=== PATIENT | female | born 1930 | race Caucasian/White ===

== ENCOUNTER 2017-04-16 14:45 | Inpatient (IN) ==
[2017-04-16] MEDS ORDERED: DILTIAZEM 50 MG/10 ML VIAL IV STA (15:08)
[2017-04-16 15:13] LABS: Basophils # 0.1 10*3/uL (0.0-0.2); Basophils % 0.4 % (0.0-0.8); Eosinophils # 0.1 10*3/uL (0.0-0.87); Eosinophils % 0.6 % (0.00-10.9); Hemoglobin 11.3 GM/DL (12.0-16.0); Immature Granulocytes % 0.5 %; Immature Granulocytes Absolute 0.07 #; Lymphocytes # 1.6 10*3/uL (1.4-4.0); Lymphocytes % 11.8 % (21.3-54.2); Mean Corpuscular HGB Conc 32.3 GM/DL (32-36); Mean Corpuscular Hemoglobin 29 PG (27-34); Mean Corpuscular Volume 88.6 FL (87-102); Mean Platelet Volume 10.7 FL (9.6-12.0); Monocytes # 0.8 10*3/uL (0.11-0.8); Monocytes % 5.8 % (1.7-12.7); Neutrophils % 80.9 % (38.7-73.9); Platelet Count 225 T/CUMM (130-400); Red Blood Count 3.95 MC/CUMM (3.8-5.5); White Blood Count 13.5 T/CUMM (4-12)
[2017-04-16 15:22] LABS: INR 1.1; PT Patient Result 11.3 SECS; Partial Thromboplastin Time 28.8 SECS (0-40)
[2017-04-16] MEDS ORDERED: DILTIAZEM INJ 100 MG in SODIUM CHLORIDE 0.9% 100 ML IV SCH (15:30)
[2017-04-16] MEDS ORDERED: DILTIAZEM 50 MG/10 ML VIAL IV ONE (15:34)
[2017-04-16] MEDS ORDERED: SODIUM CHLORIDE 0.9% 100 ML IV ONE (15:35)
[2017-04-16] MEDS ORDERED: DILTIAZEM 100 MG VIAL.ADD IV ONE (15:36)
--- NOTE | 2017-04-16 15:37 | XRay Report ---
Exam: XR chest 1V portable Date: 04/16/2017 3:08 PM Indication: Shortness of breath Comparison: None Technical: AP Findings: Mild cardiac prominence present. Bilateral Low volume effusion present. Left greater than right. ASVD present. External cardiac leads are present. Lateral marginal osteophytes are present. Calcification of tracheobronchial tree. Impression: 1. Cardiomegaly with bilateral low volume effusions present. Mild interstitial edema CHF suspected PROCEDURE INTERPRETED AT [facility] DEPARTMENT OF RADIOLOGY Final Report Signed by: Dr. Fernando Jonas
[2017-04-16 16:08] LABS: Albumin 3.2 G/DL (3.4-5.0); Bilirubin,Total 0.7 MG/DL (0.2-1.0); Calcium 8.6 MG/DL (8.5-10.1); Osmolality,Calculated 287.5 MOS/KG (273-304); Potassium 4.4 MMOL/L (3.5-5.1); Thyroid Stimulating Hormone 0.69 uIU/ml (0.358-3.74); Total Protein 7.1 G/DL (6.4-8.3)
--- NOTE | 2017-04-16 16:08 | Emergency Department Note ---
Addendum entered and electronically signed by Osmin Gross M.D. 04/16/17 18 :00: Patient acutely became hypoxic, agonal breathing, clinical suspicion is TX. She was intubated, etomidate and succinylcholine administered prior, successfully placed ET tube 7.5 on third attempt with Dr. Adrien Garcia assistance , he is the hospitalist who was there to evaluate the patient for admission for admission. Positive color change. We saw the tube passed through the cords. Secured at 24 cm and chest x-ray ordered for confirmation. Original Note: Morris Blanco Brittany, am scribing for, and in the presence of, Beck Hernandez MD 15:13. Mary Blanco James D, MD, personally performed the services described in this documentation, ascribed by Ashley Caceres in my presence, and it is both accurate and complete 607 . Arrival - Arrival ED Nursing Triage Note: Patient complains o shortness of breath that started 3 days ago. States that it was getting worse with exertion. Atrial fibrillation on the monitor per EMS. Bundle branch block on 12 lead per EMS. Mode of Arrival: Stretcher Limitations: No Limitations Source: Patient, RN Notes Reviewed - History of Present Illness Onset (ago): day(s) (3) Consistency: constant Date of Last Menstrual Period: Partial Hysterectomy <Beck Hernandez - Last Filed: 04/16/17 16:07> <Osmin Gross - Last Filed: 04/16/17 17:00> - Arrival Chief Complaint: Shortness of Breath - History of Present Illness HPI Narrative: Patient is a 86 y/o white female presenting to the ED by EMS for further evaluation of SOB which onset 3-4 days ago. Patient notes that SOB is worsened on exertional activities such as walking, and lying flat. Denies any diaphoresis , fever, productive cough, chest pain, arm pain, neck pain, nausea, vomiting, or headache. Hx of HF and Atrial Fibrillation, no TX. Link Trainer Operator is Dr. Sanchez and had a stress test performed. Patient states she took an 81 mg ASA. PMHx: HTN, NIDDM. (Ashley Caceres) Patient is a 86 y/o white female presenting to the ED by EMS for further evaluation of SOB which onset 3-4 days ago. Patient notes that SOB is worsened on exertional activities such as walking, and lying flat. Denies any diaphoresis , fever, productive cough, chest pain, arm pain, neck pain, nausea, vomiting, or headache. Hx of HF and Atrial Fibrillation, no TX. Link Trainer Operator is Dr. Sanchez and had a stress test performed. Patient states she took an 81 mg ASA. PMHx: HTN, NIDDM. (Beck Hernandez) Home Medications: Home Medications Medication Instructions Recorded Confirmed Type Aspirin EC Tab 81 mg PO QPM 04/16/17 04/16/17 History Carvedilol [Carvedilol] 3.125 mg PO BID 04/16/17 04/16/17 History Citalopram Hydrobromide 10 mg PO QPM 04/16/17 04/16/17 History [Citalopram HBr] Cyanocobalamin (Vitamin B-12) 1,000 mcg IJ Q30D 04/16/17 04/16/17 History [Cyanocobalamin Injection] Ergocalciferol (Vitamin D2) 50,000 unit PO Q7D 04/16/17 04/16/17 History [Vitamin D2] Levothyroxine Tab [Synthroid Tab] 112 mcg PO QAM 04/16/17 04/16/17 History Losartan Potassium [Losartan 50 mg PO QPM 04/16/17 04/16/17 History Potassium] Magnesium 250 mg PO QPM 04/16/17 04/16/17 History Metformin HCl 500 mg PO QPM 04/16/17 04/16/17 History Multivit-Min/Iron/Folic/Lutein 1 each PO QPM 04/16/17 04/16/17 History [Centrum Silver Women Tablet] Olopatadine HCl [Pazeo 0.7% Oph 1 drop BOTH EYES DAILY 04/16/17 04/16/17 History Soln] Omeprazole 20 mg PO QPM 04/16/17 04/16/17 History Pravastatin Sodium [Pravastatin 40 mg PO BEDTIME 04/16/17 04/16/17 History Sodium] Tizanidine HCl [Tizanidine HCl] 4 mg PO BEDTIME 04/16/17 04/16/17 History Tramadol HCl [Tramadol Tab] 50 mg PO Q6H PRN 04/16/17 04/16/17 History Review of System - Review of System 12 point system: reviewed and no additional remarkable complaints except as stated - Review of System Constitutional: Absent: diaphoresis Head/Ears/Nose/Throat: Absent: nasal drainage, sore throat Respiratory: Present: respiratory distress Cardiovascular: Absent: chest pain Gastrointestinal: Absent: abdominal pain, nausea Genitourinary female: Absent: dysuria Musculoskeletal: Absent: arm pain, neck pain Skin: Absent: rash <Beck Hernandez - Last Filed: 04/16/17 16:07> Medical,Surgical,& Family Hx - Medical History Cardio: History of: Hypertension Endocrine: History of: Diabetes Mellitus (NIDDM) - Social History Smoking Status: Never smoker Frequency of Alcohol Use: None Type of Drug Use: None <Beck Hernandez - Last Filed: 04/16/17 16:07> Exam <Beck Hernandez - Last Filed: 04/16/17 16:07> <Osmin Gross - Last Filed: 04/16/17 17:00> Physical Examination: GENERAL: This is a well-nourished, well-developed white female in no apparent distress. HEENT: Head is normocephalic and atraumatic. Pupils are equally round and reactive to light. Extraocular movement are intact. Oropharynx is benign with moist mucous membranes. NECK: Neck is soft and supple without tenderness. There are no masses. There is no lymphadenopathy. LUNGS: Lungs are clear to auscultation bilaterally. Chest rises symmetrically. There is no chest wall tenderness. CV: Heart is slightly tachycardic and has an irregularly irregular rhythm without murmurs, rubs, or gallops. ABDOMEN: Abdomen is soft, non-tender to palpation. There are no abnormal masses palpated. There is no organomegaly. Bowel sounds are present and active. SKIN: Skin is warm and dry. No rash. EXTREMITIES: Patient has full range of motion without tenderness. There is no pedal edema. NEUROLOGIC: Awake, alert, and oriented x4. Cranial nerves II through XII are grossly intact. There are no motorsensory deficits. PSYCHIATRIC: Normal affect. Normal mood. (Ashley Caceres) GENERAL: This is a well-nourished, well-developed white female in no apparent distress. HEENT: Head is normocephalic and atraumatic. Pupils are equally round and reactive to light. Extraocular movement are intact. Oropharynx is benign with moist mucous membranes. NECK: Neck is soft and supple without tenderness. There are no masses. There is no lymphadenopathy. LUNGS: Lungs are clear to auscultation bilaterally. Chest rises symmetrically. There is no chest wall tenderness. CV: Heart is slightly tachycardic and has an irregularly irregular rhythm without murmurs, rubs, or gallops. ABDOMEN: Abdomen is soft, non-tender to palpation. There are no abnormal masses palpated. There is no organomegaly. Bowel sounds are present and active. SKIN: Skin is warm and dry. No rash. EXTREMITIES: Patient has full range of motion without tenderness. There is no pedal edema. NEUROLOGIC: Awake, alert, and oriented x4. Cranial nerves II through XII are grossly intact. There are no motorsensory deficits. PSYCHIATRIC: Normal affect. Normal mood. (Beck Hernandez) Vital Signs: Vital Signs Temperature 97.4 F L 04/16/17 14:40 Pulse Rate 117 H 04/16/17 14:40 Respiratory Rate 17 04/16/17 14:40 Blood Pressure 98/49 04/16/17 14:40 O2 Sat by Pulse Oximetry 94 L 04/16/17 15:45 Course <Beck Hernandez - Last Filed: 04/16/17 16:07> <Osmin Gross - Last Filed: 04/16/17 17:00> Course Narrative: Medical decision making: Discussed patient's situation with Dr. Mccarthy cardiology construction person who recommended admission to hospitalist. Contacted hospitalist service for admission and continued evaluation of her chest pain shortness of breath possible newly diagnosed A. fib and abnormal labs. (Osmin Gross) Results - Labs CBC & BMP: 04/16/17 15:04 Lab Results: I have reviewed the patients labs - Diagnostic Findings Procedure: Chest x-ray: report reviewed by me (Cardiomegaly with bilateral low volume effusions present. Mild interstitial edema CHF suspected.) <Beck Hernandez - Last Filed: 04/16/17 16:07> - Labs CBC & BMP: 04/16/17 15:04 04/16/17 15:04 - EKG EKG results: interpreted by [facility] EKG shows: tachycardia, atrial fibrillation (RVR 106 HR) <Osmin Gross - Last Filed: 04/16/17 17:00> - Labs Labs: Laboratory Tests 04/16/17 15:04 WBC 13.5 H RBC 3.95 Hgb 11.3 L Hct 35.0 L Plt Count 225 Neut % (Auto) 80.9 H Lymph % (Auto) 11.8 L Neut # (Auto) 11.0 H Laboratory Tests 04/16/17 15:04 INR 1.1 PT Patient/Control Mix 11.3 Circ Anticoag PTT 28.8 Laboratory Tests 04/16/17 15:04 Free T4 1.88 H (Ashley Caceres) Laboratory Tests 04/16/17 15:04 WBC 13.5 H RBC 3.95 Hgb 11.3 L Hct 35.0 L Plt Count 225 Neut % (Auto) 80.9 H Lymph % (Auto) 11.8 L Neut # (Auto) 11.0 H Laboratory Tests 04/16/17 15:04 INR 1.1 PT Patient/Control Mix 11.3 Circ Anticoag PTT 28.8 Laboratory Tests 04/16/17 15:04 Free T4 1.88 H (Beck Hernandez) Disposition Case discussed with: patient <Beck Hernandez - Last Filed: 04/16/17 16:07> Case discussed with: patient, patient's family Time of Disposition: 17:00 <Osmin Gross - Last Filed: 04/16/17 17:00> Clinical Impression: Atrial fibrillation with RVR, Dyspnea Disposition: Still a Patient Condition: Stable
[2017-04-16 16:16] LABS: Troponin I Only 1.2 NG/ML (0.00-0.045)
[2017-04-16] MEDS ORDERED: ONDANSETRON 4 MG/2 ML VIAL ONE (17:17)
[2017-04-16] MEDS ORDERED: ONDANSETRON 4 MG/2 ML VIAL IV STA (17:21)
[2017-04-16] MEDS ORDERED: PROPOFOL 1,000 MG/100 ML BOTTLE IV ONE (17:41)
--- NOTE | 2017-04-16 17:55 | Hospitalist History & Physical ---
Assessment and Plan (1) Respiratory failure requiring intubation Status: Acute Assessment and plan: The patient is now admitted to the critical care area. I coordinate care with recreation facility attendant. I had family conference with the patient's daughter in the emergency room waiting room. I intubated the patient and initiate mechanical ventilation. I interpreted the EKG to reveal no evidence of acute ST elevation myocardial infarction. I ordered further EKG and ABG. I coordinated care with respiratory therapist. Current Visit: Yes (2) Chest pain due to myocardial ischemia Status: Acute Current Visit: Yes (3) Atrial fibrillation with RVR Status: Acute Current Visit: Yes (4) Dyspnea Status: Acute Current Visit: Yes History of Present Illness Chief complaint: Chest pressure and nausea History of present illness: Ms. Ramos is a 86 year old female with history of essential hypertension, hypothyroidism, and depression. The patient comes to the hospital with nausea vomiting and chest pressure. The chest pressure has been present for 6 hours. The pressure is constant, 2/10, worsening with exertion. The chest pressure is associated with nausea and vomiting. The patient denies fever, chills, dysuria. During the interview the patient's vomiting worsened and then she had hypoxia consistent with aspiration. The patient required intubation and I initiated mechanical ventilation. The patient is now being transported to intensive care unit. I coordinated care with Dr. Knight and reviewed the EKG with him. There is no acute ST elevation ID at this time. Troponin is elevated we will trend troponin and a repeat EKG. Critical care time 68 minutes. Home Medications Medication Instructions Recorded Confirmed Type Aspirin EC Tab 81 mg PO QPM 04/16/17 04/16/17 History Carvedilol [Carvedilol] 3.125 mg PO BID 04/16/17 04/16/17 History Citalopram Hydrobromide 10 mg PO QPM 04/16/17 04/16/17 History [Citalopram HBr] Cyanocobalamin (Vitamin B-12) 1,000 mcg IJ Q30D 04/16/17 04/16/17 History [Cyanocobalamin Injection] Ergocalciferol (Vitamin D2) 50,000 unit PO Q7D 04/16/17 04/16/17 History [Vitamin D2] Levothyroxine Tab [Synthroid Tab] 112 mcg PO QAM 04/16/17 04/16/17 History Losartan Potassium [Losartan 50 mg PO QPM 04/16/17 04/16/17 History Potassium] Magnesium 250 mg PO QPM 04/16/17 04/16/17 History Metformin HCl 500 mg PO QPM 04/16/17 04/16/17 History Multivit-Min/Iron/Folic/Lutein 1 each PO QPM 04/16/17 04/16/17 History [Centrum Silver Women Tablet] Olopatadine HCl [Pazeo 0.7% Oph 1 drop BOTH EYES DAILY 04/16/17 04/16/17 History Soln] Omeprazole 20 mg PO QPM 04/16/17 04/16/17 History Pravastatin Sodium [Pravastatin 40 mg PO BEDTIME 04/16/17 04/16/17 History Sodium] Tizanidine HCl [Tizanidine HCl] 4 mg PO BEDTIME 04/16/17 04/16/17 History Tramadol HCl [Tramadol Tab] 50 mg PO Q6H PRN 04/16/17 04/16/17 History Medical,Surgical,& Family Hx - Medical History Cardio: History of: Hypertension Endocrine: History of: Diabetes Mellitus (NIDDM) - Family History Family History: Reports;: Family Hypertension - Social History Smoking Status: Never smoker Frequency of Alcohol Use: None Type of Drug Use: None Marital Status: Lives With:: Children Functional capacity: independent ambulation 12 point system: reviewed and no additional remarkable complaints except as stated Exam - Constitutional Vitals: Period Temp Pulse Resp BP Sys/[place] Pulse Ox Last 24 Hr 97.4 F 117 17 98/49 94-95 Exam: Constitutional System: Moderate distress on account of vomiting. No tremulousness. Head: Normocephalic, atraumatic. Ears, Nose and Throat System: No evidence of Otitis or Mastoiditis. No epistaxis or discharge Eyes System: Pupils equal, round, and reactive. Extraocular muscles intact. Neck: Supple, without adenopathy, 1+ jugular venous distention. No thyromegaly , neck mass, or prior surgery apparent. Respiratory System: Chest rhonchi in bases to auscultation. Cardiovascular System: Heart with irregular rate and rhythm. No murmur. GI System: Abdomen soft, nontender. Normo active bowel sounds present. Musculoskeletal System: limbs with no pedal edema. Full distal pulses. Neurological System: No discernable sensory deficit. No aphasia Psychiatric System: Conversation is rational prior to intubation Results - Labs CBC & BMP: 04/16/17 15:04 04/16/17 15:04 Lab Results: I have reviewed the past 24 hour labs - EKG EKG shows: atrial fibrillation - Diagnostic Findings Procedure: Chest x-ray: image reviewed by me (Postintubation chest x-ray reveals ET tube in appropriate placement)
--- NOTE | 2017-04-16 18:47 | XRay Report ---
XR chest 1V Indication: Intubation Comparison: 16 April 2017 Findings: The heart and mediastinum are stable in size and configuration. Endotracheal tube is present with tip just beyond the clavicles. The pulmonary vascularity is slightly increased with bilateral increased interstitial lung density. No other lung infiltrates, effusions, pneumothorax or other abnormality is demonstrated. Impression: Findings suggest mild cardiac decompensation. Endotracheal tube appears within normal limits. PROCEDURE INTERPRETED AT [facility] DEPARTMENT OF RADIOLOGY Final Report Signed by: Dr. Pablo Mcduffie
[2017-04-16] MEDS ORDERED: DOPamine 800 MG/250 ML PREMIX IV ONE (18:48)
[2017-04-16] MEDS ORDERED: ONDANSETRON 4 MG/2 ML VIAL IV PRN (18:49)
[2017-04-16] MEDS: DOPamine 800 MG/250 ML PREMIX IV SCH (18:51)
--- NOTE | 2017-04-16 18:52 | EKG Report ---
Stationary ECG Study [facility] ER Test Date: 04/16/2017 2:57:12 PM Pat Name: NABEEL BONILLA Department: Room: 117 Gender: F [employer]: : 1930 Requested by: Adrien Garcia Order Number: [id number] Reading MD: ROLANDO ABRAMS Intervals [place] Rate: 106 P: 999 NC: 0 QRS: -11 QRSD: 136 T: 130 QT: 371 QTc: 433 Interpretive Statements ATRIAL FIBRILLATION WITH RAPID VENTRICULAR RESPONSE INTRAVENTRICULAR CONDUCTION DELAY POSSIBLE ANTERIOR MYOCARDIAL INFARCTION, PROBABLY OLD Electronically Signed On 04-17-17 06:17:28 CDT by ROLANDO ABRAMS [email or web address]
[2017-04-16 18:55] LABS: Apearance,Urine CLOUDY (Clear); Bacteria,Urine Many /HPF (Few); Bilirubin,Urine Negative (Negative); Blood, Urine Large mg/dL (Negative); Glucose,Urine (UA) Negative (Negative); Hyaline Casts,Urine 110 /LPF (0-3); Ketones,Urine 5 mg/dL (Negative); Mucus,Urine Few /LPF (Occasional); Nitrite,Urine Negative (Negative); Protein,Urine 100 MG/DL; RBC,Urine 371 /HPF (0-4); Urine Color Amber (Yellow); Urine Specific Gravity 1.016 (1.001-1.035); Urine Urobilinogen < 2.0 EU/DL (0.2-1.0); WBC,Urine 102 /HPF (0-6)
[2017-04-16] MEDS ORDERED: SUCCINYLCHOLINE 200 MG/10 ML VIAL ONE (19:00)
[2017-04-16] MEDS ORDERED: ETOMIDATE 20 MG/10 ML VIAL IV ONE (19:00)
[2017-04-16] MEDS ORDERED: ENOXAPARIN 30 MG/0.3 ML SYRINGE SUBCUT SCH (19:00)
[2017-04-16] MEDS ORDERED: cefTRIAXone 1,000 MG in SODIUM CHLORIDE 0.9% 100 ML IV SCH (19:00)
[2017-04-16 19:01] LABS: Barbiturates Screen,Urine Negative (Negative); Benzodiazepines Screen,Urine Negative (Negative); Cannabinoid Screen,Urine Negative (Negative); Opiate Screen,Urine Negative (Negative); Phencyclidine Screen,Urine Negative (Negative)
[2017-04-16] MEDS ORDERED: SODIUM CHLORIDE 0.9% 1,000 ML IV ONE (19:16)
--- NOTE | 2017-04-16 19:21 | Cardiology Consult Note ---
Assessment and Plan (1) Non-ST elevation myocardial infarction (NSTEMI) Status: Acute Current Visit: Yes (2) Atrial fibrillation with RVR Status: Acute Current Visit: Yes (3) Chest pain due to myocardial ischemia Status: Acute Current Visit: Yes History of Present Illness - Data of Consult Patient: new to practice - Consult Narrative Reason for consult: Elevated troponin abnormal EKG episode bradycardia hypotension respiratory History of present illness: Ms. Ramos is a 86 year old female who presented to the emergency room with complaints of tachycardia atrial fibrillation nausea and dyspnea. She apparently was complaining of chest pressure and her troponin was noted to be 1.3. She had associated nausea and vomiting. She was admitted to the intensive care unit for close observation and Dr. Adrien Garcia had seen her. There was not felt to be any evidence of an acute ST elevation myocardial infarction. She had a fairly stable left bundle branch block. She is now on an idioventricular rhythm with rates in the 45 range with AV dissociation noted. She is hypotensive requiring dopamine for blood pressure support. She became hypoxemic and required intubation and will be mechanically ventilated. Certainly we could be dealing with an acute coronary event but I am not certain that that is the etiology of this. There is no indication based on her EKG that this is an acute myocardial infarction. CC: Adrien Garcia MD - Home Medications and Allergies Home Medications: Home Medications Medication Instructions Recorded Confirmed Type Aspirin EC Tab 81 mg PO QPM 04/16/17 04/16/17 History Carvedilol [Carvedilol] 3.125 mg PO BID 04/16/17 04/16/17 History Citalopram Hydrobromide 10 mg PO QPM 04/16/17 04/16/17 History [Citalopram HBr] Cyanocobalamin (Vitamin B-12) 1,000 mcg IJ Q30D 04/16/17 04/16/17 History [Cyanocobalamin Injection] Ergocalciferol (Vitamin D2) 50,000 unit PO Q7D 04/16/17 04/16/17 History [Vitamin D2] Levothyroxine Tab [Synthroid Tab] 112 mcg PO QAM 04/16/17 04/16/17 History Losartan Potassium [Losartan 50 mg PO QPM 04/16/17 04/16/17 History Potassium] Magnesium 250 mg PO QPM 04/16/17 04/16/17 History Metformin HCl 500 mg PO QPM 04/16/17 04/16/17 History Multivit-Min/Iron/Folic/Lutein 1 each PO QPM 04/16/17 04/16/17 History [Centrum Silver Women Tablet] Olopatadine HCl [Pazeo 0.7% Oph 1 drop BOTH EYES DAILY 04/16/17 04/16/17 History Soln] Omeprazole 20 mg PO QPM 04/16/17 04/16/17 History Pravastatin Sodium [Pravastatin 40 mg PO BEDTIME 04/16/17 04/16/17 History Sodium] Tizanidine HCl [Tizanidine HCl] 4 mg PO BEDTIME 04/16/17 04/16/17 History Tramadol HCl [Tramadol Tab] 50 mg PO Q6H PRN 04/16/17 04/16/17 History Allergies/Adverse Reactions: Allergies Allergy/AdvReac Type Severity Reaction Status Date / Time codeine Allergy Unknown/Unable Verified 04/16/17 18:25 to obtain Iodinated Contrast Media - Allergy Unknown/Unable Verified 04/16/17 18:25 Oral and to obtain Medical,Surgical,& Family Hx - Medical History Cardio: History of: Hypertension Endocrine: History of: Diabetes Mellitus (NIDDM) - Family History Family History: Reports;: Family Hypertension - Social History Smoking Status: Never smoker Frequency of Alcohol Use: None Type of Drug Use: None Physical Examination Vital Signs Temp Pulse Resp BP Pulse Ox 97.4 F L 117 H 17 98/49 95 04/16/17 14:40 04/16/17 14:40 04/16/17 14:40 04/16/17 14:40 04/16/17 14:40 Exam: Physical examination: General: The patient is intubated on the ventilator. HEENT: Normocephalic, sclera are clear there are no lid xanthelasmas noted. Oral mucosa is free of cyanosis or pallor. Endotracheal tube is in stable position. Neck: The neck is supple without JVD. Carotid upstrokes are normal by visualization no bruit is audible. There is no palpable thyroid. Trachea is midline. Chest: Lungs: The patient is comfortable at rest without intercostal retractions or abdominal breathing. There are no adventitial sounds rales rubs rhonchi or wheezes noted. Cardiovascular: The PMI is nondisplaced. There is a bradycardic rhythm. There is a systolic murmur noted grade 2 at the apex. Abdomen: Abdomen is soft and nontender with normal active bowel sounds. There is no palpable mass or organomegaly noted. There is no midline bruit. Extremities exam: There is no cyanosis clubbing or edema. Skin: Skin is warm and dry without ecchymosis or urticaria or skin rash. There are no palpable nodules. Musculoskeletal: There is no kyphosis or scoliosis noted. Result/EKG - Labs CBC & BMP: 04/16/17 15:04 04/16/17 15:04 Labs: Laboratory Results - last 24 hr 04/16/17 04/16/17 04/16/17 15:04 15:04 15:04 WBC 13.5 H RBC 3.95 Hgb 11.3 L Hct 35.0 L MCV 88.6 MCH 29 MCHC 32.3 RDW 14.0 Plt Count 225 MPV 10.7 Neut % (Auto) 80.9 H Lymph % (Auto) 11.8 L Hale % (Auto) 5.8 Eos % (Auto) 0.6 Baso % (Auto) 0.4 Neut # (Auto) 11.0 H Lymph # (Auto) 1.6 Hale # (Auto) 0.8 Eos # (Auto) 0.1 Baso # (Auto) 0.1 Immature Gran % 0.5 Nucleated RBC % 0.0 Immature Gran # 0.07 Nucleated RBCs # 0.00 INR 1.1 PT Patient/Control Mix 11.3 Circ Anticoag PTT 28.8 Sodium Potassium Chloride Carbon Dioxide Anion Gap BUN Creatinine GFR Calculation BUN/Creatinine Ratio Glucose Calculated Osmolality Calcium Total Bilirubin AST ALT Alkaline Phosphatase Troponin I B-Natriuretic Peptide Total Protein Albumin Globulin Albumin/Globulin Ratio Free T4 1.88 H TSH 3rd Generation Urine Color Urine Appearance Urine pH Ur Specific [place] Urine Protein Urine Glucose (UA) Urine Ketones Urine Blood Urine Nitrate Urine Bilirubin Urine Urobilinogen Urine Leukocytes Urine RBC Urine WBC Urine Bacteria Hyaline Casts Urine Mucus Ur Culture Indicated? Urine Opiates Screen Ur Barbiturates Screen Ur Phencyclidine Scrn U Amphetamine/Methamph U Benzodiazepines Scrn U Cocaine Metab Screen U Cannabinoids Screen 04/16/17 04/16/17 04/16/17 15:04 15:04 17:50 WBC RBC Hgb Hct MCV MCH MCHC RDW Plt Count MPV Neut % (Auto) Lymph % (Auto) Hale % (Auto) Eos % (Auto) Baso % (Auto) Neut # (Auto) Lymph # (Auto) Hale # (Auto) Eos # (Auto) Baso # (Auto) Immature Gran % Nucleated RBC % Immature Gran # Nucleated RBCs # INR PT Patient/Control Mix Circ Anticoag PTT Sodium 139 Potassium 4.4 Chloride 102 Carbon Dioxide 23 Anion Gap 18.4 H BUN 27 H Creatinine 1.90 H GFR Calculation 22 BUN/Creatinine Ratio 14.00 Glucose 202 H Calculated Osmolality 287.5 Calcium 8.6 Total Bilirubin 0.70 AST 22 ALT 15 Alkaline Phosphatase 106 Troponin I 1.200 H B-Natriuretic Peptide 293 H Total Protein 7.1 Albumin 3.2 L Globulin 3.9 H Albumin/Globulin Ratio 0.8 L Free T4 TSH 3rd Generation 0.690 Urine Color Urine Appearance Urine pH Ur Specific [place] Urine Protein Urine Glucose (UA) Urine Ketones Urine Blood Urine Nitrate Urine Bilirubin Urine Urobilinogen Urine Leukocytes Urine RBC Urine WBC Urine Bacteria Hyaline Casts Urine Mucus Ur Culture Indicated? Urine Opiates Screen Negative Ur Barbiturates Screen Negative Ur Phencyclidine Scrn Negative U Amphetamine/Methamph Negative U Benzodiazepines Scrn Negative U Cocaine Metab Screen Negative U Cannabinoids Screen Negative 04/16/17 17:50 WBC RBC Hgb Hct MCV MCH MCHC RDW Plt Count MPV Neut % (Auto) Lymph % (Auto) Hale % (Auto) Eos % (Auto) Baso % (Auto) Neut # (Auto) Lymph # (Auto) Hale # (Auto) Eos # (Auto) Baso # (Auto) Immature Gran % Nucleated RBC % Immature Gran # Nucleated RBCs # INR PT Patient/Control Mix Circ Anticoag PTT Sodium Potassium Chloride Carbon Dioxide Anion Gap BUN Creatinine GFR Calculation BUN/Creatinine Ratio Glucose Calculated Osmolality Calcium Total Bilirubin AST ALT Alkaline Phosphatase Troponin I B-Natriuretic Peptide Total Protein Albumin Globulin Albumin/Globulin Ratio Free T4 TSH 3rd Generation Urine Color Sarah Urine Appearance Cloudy Urine pH 5.0 Ur Specific [place] 1.016 Urine Protein 100 Urine Glucose (UA) Negative Urine Ketones 5 Urine Blood Large Urine Nitrate Negative Urine Bilirubin Negative Urine Urobilinogen < 2.0 H Urine Leukocytes Moderate H Urine RBC 371 Urine WBC 102 Urine Bacteria Many Hyaline Casts 110 Urine Mucus Few Ur Culture Indicated? Results to follow Urine Opiates Screen Ur Barbiturates Screen Ur Phencyclidine Scrn U Amphetamine/Methamph U Benzodiazepines Scrn U Cocaine Metab Screen U Cannabinoids Screen
[2017-04-16 19:23] LABS: ABG Base Excess -16.6 MMOL/L (-2.5-2.5); ABG HCO3 12.1 MMOL/L (20-26); ABG Oxygen Saturation 97.7 % (95-100); ABG PCO2 38.5 MM HG (35-48); ABG TCO2 11.7 MMOL/L (23-27)
[2017-04-16 19:26] LABS: ABG PH 7.117 (7.35-7.45)
[2017-04-16] MEDS ORDERED: ENOXAPARIN 60 MG/0.6 ML SYRINGE SUBCUT ONE (19:26)
--- NOTE | 2017-04-16 19:34 | XRay Report ---
XR chest 1V portable Indication: Central line placement Comparison: 16 April 2017 at 5:20 PM Findings: The heart and mediastinum are stable in size and configuration. Right subclavian catheter is in place with tip overlying right atrium. Remaining lines and tubes are unchanged in position. The pulmonary vascularity is prominent similar to previous exam. No lung infiltrates, effusions, pneumothorax or other abnormality is demonstrated. Impression: Right subclavian catheter appear so within normal limits. No other significant changes. PROCEDURE INTERPRETED AT [facility] DEPARTMENT OF RADIOLOGY Final Report Signed by: Dr. Pablo Mcduffie
[2017-04-16 19:36] LABS: ABG HCO3 11.7 MMOL/L (20-26); ABG Oxygen Saturation 94.7 % (95-100); ABG PCO2 37.3 MM HG (35-48); ABG TCO2 11.3 MMOL/L (23-27)
[2017-04-16 19:37] LABS: ABG PH 7.112 (7.35-7.45)
[2017-04-16] MEDS: ALBUTEROL 2.5 MG/3 ML NEB RESP TX PRN ×2 (19:38→19:39)
[2017-04-16] MEDS ORDERED: ISOPROTERENOL 1 MG/5 ML VIAL IV ONE (19:38)
[2017-04-16] MEDS: ALBUTEROL/IPRATROPIUM 3 ML NEB RESP TX SCH (19:38)
[2017-04-16] MEDS: MORPHINE 2 MG/1 ML SYRINGE IV PRN (19:41)
[2017-04-16] MEDS ORDERED: SODIUM BICARBONATE 50 MEQ/50 ML SYRINGE IV ONE ×2 (19:59→20:10)
[2017-04-16] MEDS ORDERED: ISOPROTERENOL IV SCH (20:00)
[2017-04-16] MEDS ORDERED: LEVOFLOXACIN INJ 500 MG in PREMIX 1 EACH IV SCH (20:00)
[2017-04-16] MEDS ORDERED: SODIUM CHLORIDE 0.9% IV SCH (20:00)
[2017-04-16] MEDS ORDERED: FAMOTIDINE 20 MG/2 ML VIAL IV SCH (20:00)
[2017-04-16] MEDS ORDERED: SODIUM CHLORIDE 0.9% 500 ML IV ONE (20:10)
[2017-04-16] MEDS: NOREPINEPHRINE 8 MG in SODIUM CHLORIDE 0.9% 242 ML IV SCH (20:17)
[2017-04-16] MEDS: SODIUM CHLORIDE 0.9% 1,000 ML IV SCH (20:20)
[2017-04-16] MEDS: PROPOFOL 1,000 MG/100 ML BOTTLE IV SCH (22:22)
[2017-04-17] MEDS: DOPamine 800 MG/250 ML PREMIX IV SCH ×2 (00:23→07:40)
[2017-04-17] MEDS: ALBUTEROL/IPRATROPIUM 3 ML NEB RESP TX SCH ×3 (00:50→13:20)
[2017-04-17] MEDS: NOREPINEPHRINE 8 MG in SODIUM CHLORIDE 0.9% 242 ML IV SCH ×2 (01:18→06:12)
[2017-04-17] MEDS: PROPOFOL 1,000 MG/100 ML BOTTLE IV SCH (01:24)
[2017-04-17] MEDS: SODIUM CHLORIDE 0.9% 1,000 ML IV SCH ×2 (03:05→07:19)
[2017-04-17 03:26] LABS: Basophils % 0.1 % (0.0-0.8); Hematocrit 36.1 VOL% (35.7-47.0); Hemoglobin 11.2 GM/DL (12.0-16.0); Immature Granulocytes % 1.5 %; Lymphocytes # 1.8 10*3/uL (1.4-4.0); Lymphocytes % 8.8 % (21.3-54.2); Mean Corpuscular Hemoglobin 29 PG (27-34); Mean Corpuscular Volume 93.5 FL (87-102); Mean Platelet Volume 10.7 FL (9.6-12.0); Monocytes % 4.8 % (1.7-12.7); Neutrophils # 17.1 10*3/uL (1.4-7.4); Neutrophils % 84.8 % (38.7-73.9); Platelet Count 205 T/CUMM (130-400); Red Blood Count 3.86 MC/CUMM (3.8-5.5); Red Cell Distribution Width 14.3 % (9.3-17.3); White Blood Count 20.2 T/CUMM (4-12)
[2017-04-17] MEDS ORDERED: HEPARIN/NACL 0.9% 2 UNITS/ML 500 ML IV ONE ×2 (03:27→04:30)
[2017-04-17] MEDS ORDERED: LIDOCAINE 1%/EPI INJ 20 ML VIAL ONE (03:57)
[2017-04-17 04:00] LABS: Calcium 7.4 MG/DL (8.5-10.1); Magnesium 1.7 MG/DL (1.8-2.4); Osmolality,Calculated 303.6 MOS/KG (273-304); Potassium 4.1 MMOL/L (3.5-5.1)
[2017-04-17 04:12] LABS: Band Neutrophils 9 % (0-10); Lymphocytes 9 % (20-55); Metamyelocytes 5 %; Myelocytes 1 %; Segmented Neutrophils 73 % (50-85)
[2017-04-17 04:13] LABS: Risk Ratio 3.13; VLDL CHOLESTEROL 39.2 MG/DL
[2017-04-17 04:15] LABS: Burr Cells 1+; Platelet Estimate Normal; Polychromasia Few
[2017-04-17 04:16] LABS: Total Cells Counted 100
[2017-04-17] MEDS ORDERED: MAGNESIUM SULF RIDER 4 GM in PREMIX 1 EACH IV PRN (04:26)
[2017-04-17] MEDS ORDERED: MAGNESIUM SULF RIDER 2 GM in PREMIX 1 EACH IV PRN (04:26)
[2017-04-17] MEDS ORDERED: SODIUM CHLORIDE 0.45% 1,000 ML IV SCH (04:30)
[2017-04-17 04:31] LABS: CKMB % 4.3 %
--- NOTE | 2017-04-17 05:09 | Operative Note ---
Date of procedure: 04/17/17 Pre-op diagnosis: Right pneumothorax Post-op diagnosis: same Procedure: Procedure performed: Placement of right chest thoracostomy tube Procedure in detail: Upon my arrival the right chest was prepped and draped in sterile fashion. After procedural pause local anesthetic infiltrated in the skin and subcutaneous tissue lateral to the right nipple in the anterior axillary line. An incision was made and dissection carried over approximately the fifth rib. The thoracic cavity was bluntly entered with hemostats and there was a large negro of air present. Finger sweep revealed no adhesions. A 24 Martiniquais chest tube was then guided alongside my finger anteriorly toward the apex. It was secured in place with 2-0 silk suture. It was hooked to Pleur- evac with wall suction 20 mmHg with a small air leak identified. Sterile occlusive dressings were applied. Though in critical condition, patient appeared to tolerate the procedure well. Post procedure x-ray revealed the lung had reexpanded. Anesthesia: local Surgeon / Physician: Kee Patel Estimated blood loss: other (Less than 5 cc) Specimens: none sent Condition: critical Disposition: no change Results - Labs CBC & BMP: 04/17/17 03:15 04/17/17 03:15 Discharge Plan - Discharge Medications No Action Multivit-Min/Iron/Folic/Lutein [Centrum Silver Women Tablet] 1 each PO QPM Olopatadine HCl [Pazeo 0.7% Oph Soln] 1 drop BOTH EYES DAILY Losartan Potassium [Losartan Potassium] 50 mg PO QPM Levothyroxine Tab [Synthroid Tab] 112 mcg PO QAM Metformin HCl 500 mg PO QPM Magnesium 250 mg PO QPM Tramadol HCl [Tramadol Tab] 50 mg PO Q6H PRN PRN Reason: Pain Tizanidine HCl [Tizanidine HCl] 4 mg PO BEDTIME Pravastatin Sodium [Pravastatin Sodium] 40 mg PO BEDTIME Ergocalciferol (Vitamin D2) [Vitamin D2] 50,000 unit PO Q7D Cyanocobalamin (Vitamin B-12) [Cyanocobalamin Injection] 1,000 mcg IJ Q30D Carvedilol [Carvedilol] 3.125 mg PO BID Omeprazole 20 mg PO QPM Aspirin EC Tab 81 mg PO QPM Citalopram Hydrobromide [Citalopram HBr] 10 mg PO QPM - Follow Up or Referral - Forms/Instructions
--- NOTE | 2017-04-17 05:14 | General Surgery Consult Note ---
Assessment and Plan (1) Pneumothorax, acute Status: Acute Assessment and plan: Impression: Right pneumothorax. Plan: A right chest tube was placed at bedside. See the operative report. We will continue with 20 mmHg suction. I will follow. Patient is in critical condition. Current Visit: Yes History of Present Illness Chief complaint: Consult for chest tube placement History of present illness: Ms. Ramos is a 86 year old female who apparently sustained a significant myocardial infarction. She had undergone central line placement as well as chest compressions. Maxed out on pressors. She was found to have a large right pneumothorax this morning on chest x-ray. Home Medications Medication Instructions Recorded Confirmed Type Aspirin EC Tab 81 mg PO QPM 04/16/17 04/16/17 History Carvedilol [Carvedilol] 3.125 mg PO BID 04/16/17 04/16/17 History Citalopram Hydrobromide 10 mg PO QPM 04/16/17 04/16/17 History [Citalopram HBr] Cyanocobalamin (Vitamin B-12) 1,000 mcg IJ Q30D 04/16/17 04/16/17 History [Cyanocobalamin Injection] Ergocalciferol (Vitamin D2) 50,000 unit PO Q7D 04/16/17 04/16/17 History [Vitamin D2] Levothyroxine Tab [Synthroid Tab] 112 mcg PO QAM 04/16/17 04/16/17 History Losartan Potassium [Losartan 50 mg PO QPM 04/16/17 04/16/17 History Potassium] Magnesium 250 mg PO QPM 04/16/17 04/16/17 History Metformin HCl 500 mg PO QPM 04/16/17 04/16/17 History Multivit-Min/Iron/Folic/Lutein 1 each PO QPM 04/16/17 04/16/17 History [Centrum Silver Women Tablet] Olopatadine HCl [Pazeo 0.7% Oph 1 drop BOTH EYES DAILY 04/16/17 04/16/17 History Soln] Omeprazole 20 mg PO QPM 04/16/17 04/16/17 History Pravastatin Sodium [Pravastatin 40 mg PO BEDTIME 04/16/17 04/16/17 History Sodium] Tizanidine HCl [Tizanidine HCl] 4 mg PO BEDTIME 04/16/17 04/16/17 History Tramadol HCl [Tramadol Tab] 50 mg PO Q6H PRN 04/16/17 04/16/17 History Allergies Allergy/AdvReac Type Severity Reaction Status Date / Time codeine Allergy Unknown/Unable Verified 04/16/17 18:25 to obtain Iodinated Contrast Media - Allergy Unknown/Unable Verified 04/16/17 18:25 Oral and to obtain Medical,Surgical,& Family Hx - Medical History Cardio: History of: Hypertension HEENT: History of: Eye Problem (mac. degeneration) Endocrine: History of: Diabetes Mellitus (NIDDM), Dyslipidemia, Thyroid Disorder (hypothyroidism) Genitourinary: History of: Recurring Urinary Tract Infections Gastrointestinal: History of: GERD - Surgical History Surgical History: noncontributory Cardiac Surgeries: Patient Denies: Cardiac Surgery HEENT Surgeries: Patient denies: Tonsilectomy & Adenoidectomy Reproductive Surgeries: Surgical HX of;: Hysterectomy - Family History Family History: Reports;: Family Hypertension - Social History Smoking Status: Never smoker Frequency of Alcohol Use: None Type of Drug Use: None ROS unobtainable: due to endotracheal tube Exam - Constitutional Vitals: Period Temp Pulse Resp BP Sys/Infante Pulse Ox Last 24 Hr 96.4 F-98.6 F 46-128 16-23 63-167/24-113 94-100 - Respiratory Respiratory exam: Present: clear to auscultation bilaterally (After chest tube placement) - Cardiovascular Cardiovascular exam: Present: RRR - Neurological Exam Neurological exam: Present: other (Intubated and sedated) - Skin Skin exam: Present: normal color Results - Labs CBC & BMP: 04/17/17 03:15 04/17/17 03:15
--- NOTE | 2017-04-17 05:30 | Pulmonology Consult Note ---
Assessment and Plan (1) Respiratory failure requiring intubation Status: Acute Assessment and plan: Patient currently on mechanical ventilation. ABGs pending on current settings. Current Visit: Yes (2) Non-ST elevation myocardial infarction (NSTEMI) Status: Acute Assessment and plan: Marked elevation in cardiac isoenzymes after CPR. Unclear whether this is the cause or result. Current Visit: Yes (3) Pneumothorax, acute Status: Acute Assessment and plan: Has right chest tube in. Had a large right pneumothorax earlier. Current Visit: Yes History of Present Illness Chief complaint: Respiratory failure History of present illness: Ms. Ramos is a 86 year old female who came in with chest tightness nausea and vomiting. Initial troponin was only slightly elevated. Patient had a cardiopulmonary arrest and had CPR and was intubated. She developed right pneumothorax and now has a chest tube in place. ABGs earlier this morning showed combined acidosis, this was done prior to the chest tube. At the present time she is on the ventilator vital signs are stable. Pupils are dilated and nonresponsive but she has had atropine earlier in treatment of her bradycardia. Cardiac isoenzymes now are markedly elevated after the CPR. Home Medications Medication Instructions Recorded Confirmed Type Aspirin EC Tab 81 mg PO QPM 04/16/17 04/16/17 History Carvedilol [Carvedilol] 3.125 mg PO BID 04/16/17 04/16/17 History Citalopram Hydrobromide 10 mg PO QPM 04/16/17 04/16/17 History [Citalopram HBr] Cyanocobalamin (Vitamin B-12) 1,000 mcg IJ Q30D 04/16/17 04/16/17 History [Cyanocobalamin Injection] Ergocalciferol (Vitamin D2) 50,000 unit PO Q7D 04/16/17 04/16/17 History [Vitamin D2] Levothyroxine Tab [Synthroid Tab] 112 mcg PO QAM 04/16/17 04/16/17 History Losartan Potassium [Losartan 50 mg PO QPM 04/16/17 04/16/17 History Potassium] Magnesium 250 mg PO QPM 04/16/17 04/16/17 History Metformin HCl 500 mg PO QPM 04/16/17 04/16/17 History Multivit-Min/Iron/Folic/Lutein 1 each PO QPM 04/16/17 04/16/17 History [Centrum Silver Women Tablet] Olopatadine HCl [Pazeo 0.7% Oph 1 drop BOTH EYES DAILY 04/16/17 04/16/17 History Soln] Omeprazole 20 mg PO QPM 04/16/17 04/16/17 History Pravastatin Sodium [Pravastatin 40 mg PO BEDTIME 04/16/17 04/16/17 History Sodium] Tizanidine HCl [Tizanidine HCl] 4 mg PO BEDTIME 04/16/17 04/16/17 History Tramadol HCl [Tramadol Tab] 50 mg PO Q6H PRN 04/16/17 04/16/17 History Allergies Allergy/AdvReac Type Severity Reaction Status Date / Time codeine Allergy Unknown/Unable Verified 04/16/17 18:25 to obtain Iodinated Contrast Media - Allergy Unknown/Unable Verified 04/16/17 18:25 Oral and to obtain ROS unobtainable: due to endotracheal tube Exam (Pulmonay) H&P - Constitutional Vitals: Period Temp Pulse Resp BP Sys/Infante Pulse Ox Last 24 Hr 96.4 F-98.6 F 46-128 16-23 63-167/24-113 94-100 Exam: Systolic blood pressure 122. She is on pressors with dopamine. Pupils dilated unresponsive. She does have some spontaneous motion. Orotracheal tube in place. Neck is supple. Chest reveals some coarse rhonchi on the right side. Small amount of subcutaneous layer. Left lung sounds fairly clear. Heart rate is in the 70s and regular. Abdomen soft no masses. Extremities no clubbing cyanosis or edema. Medical,Surgical,& Family Hx - Medical History Cardio: History of: Hypertension HEENT: History of: Eye Problem (mac. degeneration) Endocrine: History of: Diabetes Mellitus (NIDDM), Dyslipidemia, Thyroid Disorder (hypothyroidism) Genitourinary: History of: Recurring Urinary Tract Infections Gastrointestinal: History of: GERD - Surgical History Cardiac Surgeries: Patient Denies: Cardiac Surgery HEENT Surgeries: Patient denies: Tonsilectomy & Adenoidectomy Reproductive Surgeries: Surgical HX of;: Hysterectomy - Family History Family History: Reports;: Family Hypertension - Social History Smoking Status: Never smoker Frequency of Alcohol Use: None Type of Drug Use: None Results - Labs CBC & BMP: 04/17/17 03:15 04/17/17 03:15 Lab Results: I have reviewed the past 24 hour labs - Diagnostic Findings Procedure: Chest x-ray: image reviewed by me (ET tube good position. Right midlung infiltrate. Chest tube in good position. Right lung fully expanded now.)
[2017-04-17 05:42] LABS: ABG Base Excess -18.4 MMOL/L (-2.5-2.5); ABG HCO3 10.9 MMOL/L (20-26); ABG Oxygen Saturation 98.3 % (95-100); ABG PCO2 24.1 MM HG (35-48); ABG TCO2 8.3 MMOL/L (23-27); Allen Test Positive; Pt O2 Delivery Device Ventilator
--- NOTE | 2017-04-17 05:57 | Event Note ---
Called by staff noted that patient may have a pneumothorax. She had a chest x- ray done and was told to have suspected pneumothorax by police service technician. Patient was status post code last night and also had subclavian catheter placed on the right side. Post central line chest x-ray did not report to have any pneumothorax. Patient was still hemodynamically stable he despite large right pneumothorax and maintaining maintaining O2 sat. On auscultation did notice less air entry and less on the right side. Dr. Patel was called and patient had chest tube placed
[2017-04-17 06:00] LABS: ABG PH 7.178 (7.35-7.45)
[2017-04-17] MEDS ORDERED: SODIUM CHLORIDE 0.9% 500 ML IV ONE ×2 (06:07→07:01)
[2017-04-17] MEDS ORDERED: SODIUM BICARBONATE 50 MEQ/50 ML SYRINGE IV ONE ×3 (06:22→10:18)
[2017-04-17] MEDS ORDERED: PHENYLEPHRINE DRIP 40 MG/250 ML PREMIX IV ONE (06:26)
[2017-04-17] MEDS ORDERED: SODIUM CHLORIDE 0.9% 1,000 ML IV SCH (06:30)
--- NOTE | 2017-04-17 07:23 | Cardiology Progress Note ---
Assessment and Plan (1) Non-ST elevation myocardial infarction (NSTEMI) Status: Acute Current Visit: Yes (2) Atrial fibrillation with RVR Status: Acute Current Visit: Yes (3) Chest pain due to myocardial ischemia Status: Acute Current Visit: Yes (4) LBBB (left bundle branch block) Status: Acute Assessment and plan: I do not have an old EKG to review. I suspect that this is left bundle related to her myocardial infarction with heart block which indicates extensive myocardial injury. Her prognosis is poor. She is a poor candidate for aggressive management. I would favor conservative approach. We are discussing with the family. Current Visit: Yes Cardiology - PN: Subj Interval history: This patient has evolved and fairly extensive myocardial infarction. She had a bradycardic rhythm with AV dissociation and bundle branch block which is a poor prognostic indicator. She developed a pneumothorax on the right side and has been treated with chest tube drainage. Her urine output is scant and her blood pressure is low and I suspect that she will not survive this event. Her prognosis is poor. Exam (Progress Note) - Constitutional Vitals: Period Temp Pulse Resp BP Sys/Infante Pulse Ox Last 24 Hr 96.4 F-98.6 F 46-128 16-23 56-167/24-113 92-100 Exam: General:no acute distress. Sedated on the ventilator HEENT: no new lesions, sclerae are clear, mouth and pharynx benign Neck: supple, trachea midline, no JVD noted Lungs: no rales ronchi or wheeze is noted. pt comfortable without accesory muscle use to assist with breathing CV: RRR S3 noted. No murmur appreciated. Abd: soft and nontender, BSNA, no masses. Ext: no cyanosis, clubbing or edema Neuro: grossly intact without focal neurologic deficit. Result/EKG - Labs CBC & BMP: 04/17/17 03:15 04/17/17 03:15 Labs: Laboratory Results - last 24 hr 04/16/17 04/16/17 04/16/17 15:04 15:04 15:04 WBC 13.5 H RBC 3.95 Hgb 11.3 L Hct 35.0 L MCV 88.6 MCH 29 MCHC 32.3 RDW 14.0 Plt Count 225 MPV 10.7 Neut % (Auto) 80.9 H Lymph % (Auto) 11.8 L [place] % (Auto) 5.8 Eos % (Auto) 0.6 Baso % (Auto) 0.4 Neut # (Auto) 11.0 H Lymph # (Auto) 1.6 Banner # (Auto) 0.8 Eos # (Auto) 0.1 Baso # (Auto) 0.1 Total Counted Immature Gran % 0.5 Nucleated RBC % 0.0 Immature Gran # 0.07 Segmented Neutrophils Band Neutrophils Lymphocytes Monocytes Metamyelocytes Myelocytes Nucleated RBCs # 0.00 Platelet Estimate Polychromasia Brittny Cells INR 1.1 PT Patient/Control Mix 11.3 Circ Anticoag PTT 28.8 ABG pH ABG pCO2 ABG pO2 ABG HCO3 ABG Total CO2 ABG O2 Saturation ABG Base Excess FiO2 Sodium Potassium Chloride Carbon Dioxide Anion Gap BUN Creatinine GFR Calculation BUN/Creatinine Ratio Glucose POC Glucose Hemoglobin A1c Calculated Osmolality Calcium Magnesium Total Bilirubin AST ALT Alkaline Phosphatase Total Creatine Kinase CK-MB (CK-2) CK and CKMB Interp Troponin I B-Natriuretic Peptide Total Protein Albumin Globulin Albumin/Globulin Ratio Triglycerides Cholesterol LDL Cholesterol VLDL Cholesterol HDL Cholesterol Heart Disease Risk Ratio Free T4 1.88 H TSH 3rd Generation Urine Color Urine Appearance Urine pH Ur Specific [place] Urine Protein Urine Glucose (UA) Urine Ketones Urine Blood Urine Nitrate Urine Bilirubin Urine Urobilinogen Urine Leukocytes Urine RBC Urine WBC Urine Bacteria Hyaline Casts Urine Mucus Ur Culture Indicated? Urine Opiates Screen Ur Barbiturates Screen Ur Phencyclidine Scrn U Amphetamine/Methamph U Benzodiazepines Scrn U Cocaine Metab Screen U Cannabinoids Screen 04/16/17 04/16/17 04/16/17 15:04 15:04 17:50 WBC RBC Hgb Hct MCV MCH MCHC RDW Plt Count MPV Neut % (Auto) Lymph % (Auto) [place] % (Auto) Eos % (Auto) Baso % (Auto) Neut # (Auto) Lymph # (Auto) [place] # (Auto) Eos # (Auto) Baso # (Auto) Total Counted Immature Gran % Nucleated RBC % Immature Gran # Segmented Neutrophils Band Neutrophils Lymphocytes Monocytes Metamyelocytes Myelocytes Nucleated RBCs # Platelet Estimate Polychromasia [place] Cells INR PT Patient/Control Mix Circ Anticoag PTT ABG pH ABG pCO2 ABG pO2 ABG HCO3 ABG Total CO2 ABG O2 Saturation ABG Base Excess FiO2 Sodium 139 Potassium 4.4 Chloride 102 Carbon Dioxide 23 Anion Gap 18.4 H BUN 27 H Creatinine 1.90 H GFR Calculation 22 BUN/Creatinine Ratio 14.00 Glucose 202 H POC Glucose Hemoglobin A1c Calculated Osmolality 287.5 Calcium 8.6 Magnesium Total Bilirubin 0.70 AST 22 ALT 15 Alkaline Phosphatase 106 Total Creatine Kinase CK-MB (CK-2) CK and CKMB Interp Troponin I 1.200 H B-Natriuretic Peptide 293 H Total Protein 7.1 Albumin 3.2 L Globulin 3.9 H Albumin/Globulin Ratio 0.8 L Triglycerides Cholesterol LDL Cholesterol VLDL Cholesterol HDL Cholesterol Heart Disease Risk Ratio Free T4 TSH 3rd Generation 0.690 Urine Color Urine Appearance Urine pH Ur Specific [place] Urine Protein Urine Glucose (UA) Urine Ketones Urine Blood Urine Nitrate Urine Bilirubin Urine Urobilinogen Urine Leukocytes Urine RBC Urine WBC Urine Bacteria Hyaline Casts Urine Mucus Ur Culture Indicated? Urine Opiates Screen Negative Ur Barbiturates Screen Negative Ur Phencyclidine Scrn Negative U Amphetamine/Methamph Negative U Benzodiazepines Scrn Negative U Cocaine Metab Screen Negative U Cannabinoids Screen Negative 04/16/17 04/16/17 04/16/17 17:50 18:32 19:15 WBC RBC Hgb Hct MCV MCH MCHC RDW Plt Count MPV Neut % (Auto) Lymph % (Auto) [place] % (Auto) Eos % (Auto) Baso % (Auto) Neut # (Auto) Lymph # (Auto) [place] # (Auto) Eos # (Auto) Baso # (Auto) Total Counted Immature Gran % Nucleated RBC % Immature Gran # Segmented Neutrophils Band Neutrophils Lymphocytes Monocytes Metamyelocytes Myelocytes Nucleated RBCs # Platelet Estimate Polychromasia Brittny Cells INR PT Patient/Control Mix Circ Anticoag PTT ABG pH 7.117 L* ABG pCO2 38.5 ABG pO2 146.0 H ABG HCO3 12.1 L ABG Total CO2 11.7 L ABG O2 Saturation 97.7 ABG Base Excess -16.6 L FiO2 Sodium Potassium Chloride Carbon Dioxide Anion Gap BUN Creatinine GFR Calculation BUN/Creatinine Ratio Glucose POC Glucose Hemoglobin A1c Calculated Osmolality Calcium Magnesium Total Bilirubin AST ALT Alkaline Phosphatase Total Creatine Kinase CK-MB (CK-2) CK and CKMB Interp Troponin I 6.740 H D B-Natriuretic Peptide Total Protein Albumin Globulin Albumin/Globulin Ratio Triglycerides Cholesterol LDL Cholesterol VLDL Cholesterol HDL Cholesterol Heart Disease Risk Ratio Free T4 TSH 3rd Generation Urine Color Sarah Urine Appearance Cloudy Urine pH 5.0 Ur Specific [place] 1.016 Urine Protein 100 Urine Glucose (UA) Negative Urine Ketones 5 Urine Blood Large Urine Nitrate Negative Urine Bilirubin Negative Urine Urobilinogen < 2.0 H Urine Leukocytes Moderate H Urine RBC 371 Urine WBC 102 Urine Bacteria Many Hyaline Casts 110 Urine Mucus Few Ur Culture Indicated? Results to follow Urine Opiates Screen Ur Barbiturates Screen Ur Phencyclidine Scrn U Amphetamine/Methamph U Benzodiazepines Scrn U Cocaine Metab Screen U Cannabinoids Screen 04/16/17 04/16/17 04/16/17 19:25 19:31 21:55 WBC RBC Hgb Hct MCV MCH MCHC RDW Plt Count MPV Neut % (Auto) Lymph % (Auto) [place] % (Auto) Eos % (Auto) Baso % (Auto) Neut # (Auto) Lymph # (Auto) [place] # (Auto) Eos # (Auto) Baso # (Auto) Total Counted Immature Gran % Nucleated RBC % Immature Gran # Segmented Neutrophils Band Neutrophils Lymphocytes Monocytes Metamyelocytes Myelocytes Nucleated RBCs # Platelet Estimate Polychromasia [place] Cells INR PT Patient/Control Mix Circ Anticoag PTT ABG pH 7.112 L* ABG pCO2 37.3 ABG pO2 101.0 H ABG HCO3 11.7 L ABG Total CO2 11.3 L ABG O2 Saturation 94.7 L ABG Base Excess -17.0 L FiO2 Sodium Potassium Chloride Carbon Dioxide Anion Gap BUN Creatinine GFR Calculation BUN/Creatinine Ratio Glucose POC Glucose 266 H Hemoglobin A1c Calculated Osmolality Calcium Magnesium Total Bilirubin AST ALT Alkaline Phosphatase Total Creatine Kinase CK-MB (CK-2) CK and CKMB Interp Troponin I 56.400 H D B-Natriuretic Peptide Total Protein Albumin Globulin Albumin/Globulin Ratio Triglycerides Cholesterol LDL Cholesterol VLDL Cholesterol HDL Cholesterol Heart Disease Risk Ratio Free T4 TSH 3rd Generation Urine Color Urine Appearance Urine pH Ur Specific [place] Urine Protein Urine Glucose (UA) Urine Ketones Urine Blood Urine Nitrate Urine Bilirubin Urine Urobilinogen Urine Leukocytes Urine RBC Urine WBC Urine Bacteria Hyaline Casts Urine Mucus Ur Culture Indicated? Urine Opiates Screen Ur Barbiturates Screen Ur Phencyclidine Scrn U Amphetamine/Methamph U Benzodiazepines Scrn U Cocaine Metab Screen U Cannabinoids Screen 04/17/17 04/17/17 04/17/17 01:25 03:15 03:15 WBC 20.2 H D RBC 3.86 Hgb 11.2 L Hct 36.1 MCV 93.5 MCH 29 MCHC 31.0 L RDW 14.3 Plt Count 205 MPV 10.7 Neut % (Auto) 84.8 H Lymph % (Auto) 8.8 L [place] % (Auto) 4.8 Eos % (Auto) 0.0 Baso % (Auto) 0.1 Neut # (Auto) 17.1 H Lymph # (Auto) 1.8 [place] # (Auto) 1.0 H Eos # (Auto) 0.0 Baso # (Auto) 0.0 Total Counted 100 Immature Gran % 1.5 Nucleated RBC % 0.0 Immature Gran # 0.30 Segmented Neutrophils 73 Band Neutrophils 9 Lymphocytes 9 L Monocytes 3 Metamyelocytes 5 Myelocytes 1 Nucleated RBCs # 0.00 Platelet Estimate Normal Polychromasia Few Brittny Cells 1+ INR PT Patient/Control Mix Circ Anticoag PTT ABG pH ABG pCO2 ABG pO2 ABG HCO3 ABG Total CO2 ABG O2 Saturation ABG Base Excess FiO2 Sodium 146 H Potassium 4.1 Chloride 106 Carbon Dioxide 14 L Anion Gap 30.1 H BUN 34 H Creatinine 2.70 H GFR Calculation 14 BUN/Creatinine Ratio 12.00 Glucose 200 H POC Glucose Hemoglobin A1c Calculated Osmolality 303.6 Calcium 7.4 L Magnesium 1.7 L Total Bilirubin AST ALT Alkaline Phosphatase Total Creatine Kinase CK-MB (CK-2) CK and CKMB Interp Troponin I 93.800 H D B-Natriuretic Peptide Total Protein Albumin Globulin Albumin/Globulin Ratio Triglycerides Cholesterol LDL Cholesterol VLDL Cholesterol HDL Cholesterol Heart Disease Risk Ratio Free T4 TSH 3rd Generation Urine Color Urine Appearance Urine pH Ur Specific [place] Urine Protein Urine Glucose (UA) Urine Ketones Urine Blood Urine Nitrate Urine Bilirubin Urine Urobilinogen Urine Leukocytes Urine RBC Urine WBC Urine Bacteria Hyaline Casts Urine Mucus Ur Culture Indicated? Urine Opiates Screen Ur Barbiturates Screen Ur Phencyclidine Scrn U Amphetamine/Methamph U Benzodiazepines Scrn U Cocaine Metab Screen U Cannabinoids Screen 04/17/17 04/17/17 04/17/17 03:15 03:15 03:15 WBC RBC Hgb Hct MCV MCH MCHC RDW Plt Count MPV Neut % (Auto) Lymph % (Auto) [place] % (Auto) Eos % (Auto) Baso % (Auto) Neut # (Auto) Lymph # (Auto) [place] # (Auto) Eos # (Auto) Baso # (Auto) Total Counted Immature Gran % Nucleated RBC % Immature Gran # Segmented Neutrophils Band Neutrophils Lymphocytes Monocytes Metamyelocytes Myelocytes Nucleated RBCs # Platelet Estimate Polychromasia Brittny Cells INR PT Patient/Control Mix Circ Anticoag PTT ABG pH ABG pCO2 ABG pO2 ABG HCO3 ABG Total CO2 ABG O2 Saturation ABG Base Excess FiO2 Sodium Potassium Chloride Carbon Dioxide Anion Gap BUN Creatinine GFR Calculation BUN/Creatinine Ratio Glucose POC Glucose Hemoglobin A1c 7.2 H Calculated Osmolality Calcium Magnesium Total Bilirubin AST ALT Alkaline Phosphatase Total Creatine Kinase 2317 H CK-MB (CK-2) 100.4 H CK and CKMB Interp 4.3 Troponin I 166.000 H D B-Natriuretic Peptide Total Protein Albumin Globulin Albumin/Globulin Ratio Triglycerides 196 H Cholesterol 166 LDL Cholesterol 105.0 VLDL Cholesterol 39.2 HDL Cholesterol 53 Heart Disease Risk Ratio 3.13 Free T4 TSH 3rd Generation Urine Color Urine Appearance Urine pH Ur Specific [place] Urine Protein Urine Glucose (UA) Urine Ketones Urine Blood Urine Nitrate Urine Bilirubin Urine Urobilinogen Urine Leukocytes Urine RBC Urine WBC Urine Bacteria Hyaline Casts Urine Mucus Ur Culture Indicated? Urine Opiates Screen Ur Barbiturates Screen Ur Phencyclidine Scrn U Amphetamine/Methamph U Benzodiazepines Scrn U Cocaine Metab Screen U Cannabinoids Screen 04/17/17 04/17/17 03:15 05:25 WBC RBC Hgb Hct MCV MCH MCHC RDW Plt Count MPV Neut % (Auto) Lymph % (Auto) [place] % (Auto) Eos % (Auto) Baso % (Auto) Neut # (Auto) Lymph # (Auto) [place] # (Auto) Eos # (Auto) Baso # (Auto) Total Counted Immature Gran % Nucleated RBC % Immature Gran # Segmented Neutrophils Band Neutrophils Lymphocytes Monocytes Metamyelocytes Myelocytes Nucleated RBCs # Platelet Estimate Polychromasia [place] Cells INR PT Patient/Control Mix Circ Anticoag PTT ABG pH 7.178 L* D ABG pCO2 24.1 L ABG pO2 157.0 H ABG HCO3 10.9 L ABG Total CO2 8.3 L ABG O2 Saturation 98.3 ABG Base Excess -18.4 L FiO2 100.00 Sodium Potassium Chloride Carbon Dioxide Anion Gap BUN Creatinine GFR Calculation BUN/Creatinine Ratio Glucose POC Glucose Hemoglobin A1c Calculated Osmolality Calcium Magnesium Total Bilirubin AST ALT Alkaline Phosphatase Total Creatine Kinase CK-MB (CK-2) CK and CKMB Interp Troponin I B-Natriuretic Peptide 297 H Total Protein Albumin Globulin Albumin/Globulin Ratio Triglycerides Cholesterol LDL Cholesterol VLDL Cholesterol HDL Cholesterol Heart Disease Risk Ratio Free T4 TSH 3rd Generation Urine Color Urine Appearance Urine pH Ur Specific [place] Urine Protein Urine Glucose (UA) Urine Ketones Urine Blood Urine Nitrate Urine Bilirubin Urine Urobilinogen Urine Leukocytes Urine RBC Urine WBC Urine Bacteria Hyaline Casts Urine Mucus Ur Culture Indicated? Urine Opiates Screen Ur Barbiturates Screen Ur Phencyclidine Scrn U Amphetamine/Methamph U Benzodiazepines Scrn U Cocaine Metab Screen U Cannabinoids Screen - EKG EKG results: interpreted by me (Sinus rhythm left bundle branch block)
--- NOTE | 2017-04-17 07:26 | Operative Note ---
Pre-op diagnosis: Hypotension myocardial infarction Post-op diagnosis: same Procedure: Arterial line placement After local anesthesia and intravenous sedation a needle was inserted in the right femoral artery and a Glidewire was placed through the small sheath. The sheath was then removed along arterial line was advanced over the Glidewire and positioned without difficulty. The Glidewire was removed and the patient was connected to hemodynamic monitoring. The arterial line was secured to the underlying skin using a single nonabsorbable suture. Good hemodynamic monitoring is noted. Surgeon / Physician: Robin Mccarthy Results - Labs CBC & BMP: 04/17/17 03:15 04/17/17 03:15 Discharge Plan - Discharge Medications No Action Multivit-Min/Iron/Folic/Lutein [Centrum Silver Women Tablet] 1 each PO QPM Olopatadine HCl [P[place]o 0.7% Oph Soln] 1 drop BOTH EYES DAILY Losartan Potassium [Losartan Potassium] 50 mg PO QPM Levothyroxine Tab [Synthroid Tab] 112 mcg PO QAM Metformin HCl 500 mg PO QPM Magnesium 250 mg PO QPM Tramadol HCl [Tramadol Tab] 50 mg PO Q6H PRN PRN Reason: Pain Tizanidine HCl [Tizanidine HCl] 4 mg PO BEDTIME Pravastatin Sodium [Pravastatin Sodium] 40 mg PO BEDTIME Ergocalciferol (Vitamin D2) [Vitamin D2] 50,000 unit PO Q7D Cyanocobalamin (Vitamin B-12) [Cyanocobalamin Injection] 1,000 mcg IJ Q30D Carvedilol [Carvedilol] 3.125 mg PO BID Omeprazole 20 mg PO QPM Aspirin EC Tab 81 mg PO QPM Citalopram Hydrobromide [Citalopram HBr] 10 mg PO QPM - Follow Up or Referral - Forms/Instructions
[2017-04-17] MEDS ORDERED: SODIUM ACETATE IV SCH (07:30)
[2017-04-17] MEDS ORDERED: DEXTROSE 5% IV SCH (07:30)
[2017-04-17] MEDS ORDERED: PHENYLEPHRINE DRIP 40 MG/250 ML PREMIX IV SCH (07:30)
[2017-04-17 07:51] LABS: ABG Base Excess -24.1 MMOL/L (-2.5-2.5); ABG HCO3 7.5 MMOL/L (20-26); ABG Oxygen Saturation 95.9 % (95-100); ABG PCO2 28.4 MM HG (35-48); ABG TCO2 6.6 MMOL/L (23-27)
[2017-04-17 07:54] LABS: ABG PH 6.977 (7.35-7.45)
--- NOTE | 2017-04-17 07:54 | XRay Report ---
XR chest 1V portable Indication: Chest tube placement. Chest one view: Comparison 0327 hours. Right apical chest tube is now present evacuating the right pneumothorax almost completely. Small amount of subcutaneous emphysema is now present. Endotracheal tube, NG tube, normal heart size, course and interstitial markings of the lungs and defibrillator pads are again demonstrated. Impression: Placement of right apical chest tube as described. Satisfactory reduction of right pneumothorax. PROCEDURE INTERPRETED AT [facility] DEPARTMENT OF RADIOLOGY Final Report Signed by: Ash Sosa M.D.
[2017-04-17] MEDS ORDERED: NOREPINEPHRINE 16 MG in SODIUM CHLORIDE 0.9% 234 ML IV SCH (08:00)
--- NOTE | 2017-04-17 08:21 | EKG Report ---
Stationary ECG Study [facility] Test Date: 04/17/2017 8:22:42 AM Pat Name: NABEEL BONILLA Department: Room: 117 Gender: F Talent Coordinator: RAYSHAWN : 1930 Requested by: Adrien Garcia Order Number: [id number] Reading MD: ROLANDO ABRAMS Intervals [place] Rate: 60 P: 999 SC: 0 QRS: 12 QRSD: 126 T: 120 QT: 386 QTc: 387 Interpretive Statements ATRIAL FIBRILLATION MODERATE INTRAVENTRICULAR CONDUCTION DELAY MARKED ST DEPRESSION, CONSIDER SUBENDOCARDIAL INJURY Electronically Signed On 04-18-17 06:16:43 CDT by ROLANDO ABRAMS [email or web address]
--- NOTE | 2017-04-17 08:47 | XRay Report ---
XR chest 1V portable Indication: Intubated. Chest one view: Since yesterday, right pneumothorax has developed. Leftward shift of midline structures is present. Reticular prominence of the left lung, hazy opacification left lung base, normal heart size, endotracheal tube, central line and NG tube are stable. Defibrillator pad is now in the field of view. Impression: Right pneumothorax with leftward shift. Comment: Study obtained at 0327 hours. At 0429 hours, a follow-up chest x-ray was obtained showing right chest tube. PROCEDURE INTERPRETED AT [facility] DEPARTMENT OF RADIOLOGY Final Report Signed by: Ash Sosa M.D.
[2017-04-17] MEDS ORDERED: PANTOPRAZOLE 40 MG TABLET PO SCH (09:00)
[2017-04-17] MEDS: MORPHINE 2 MG/1 ML SYRINGE IV PRN (09:05)
--- NOTE | 2017-04-17 09:09 | Ultrasound Report ---
US venous doppler LE BI Indication: Swelling. BILATERAL LOWER EXTREMITY VENOUS ULTRASOUND Comparison: None Findings: Graded grayscale compression, color Doppler and pulsed Doppler ultrasound evaluation of the venous structures performed. Normal compressibility, augmentation and color saturation is present within bilateral common femoral, superficial femoral, popliteal and proximal greater saphenous veins. Impression: No evidence of DVT either lower extremity. PROCEDURE INTERPRETED AT [facility] DEPARTMENT OF RADIOLOGY Final Report Signed by: Ash Sosa M.D.
[2017-04-17 09:21] VITALS: BP 0/0
--- NOTE | 2017-04-17 09:40 | Discharge Summary ---
Hospital Course - Hospital Course Hospital Course: The patient was admitted to the emergency room with complaints of mild to moderate chest pressure and intense nausea. The patient had vomiting in the emergency room as well as aspiration requiring intubation and emergent mechanical ventilation. Troponin value was mildly elevated and I was suspicious that she had myocardial infarction. The patient was brought to intensive care unit and established on the ventilator. I consulted Dr. Mccarthy and he reviewed the case at the bedside. 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 The patient was treated conservatively overnight with supportive care. She was found to have right pneumothorax and Dr. Patel placed a chest tube. The patient developed hypotension and troponin values were markedly elevated. Dr. Mccarthy reevaluated the patient on the second hospital day and discussed her case with the family. They reach consensus to change her to DNR status on account of poor prognosis. The patient succumbed to her illness on the morning of April 17. 34 minutes were required for evaluation, preparation of discharge documentation and coordination of care with consultants on the date of discharge - Time spent with patient Time with patient DS: Greater than 30 minutes Diagnosis - Discharge Diagnosis (1) Respiratory failure requiring intubation Status: Acute (2) Chest pain due to myocardial ischemia Status: Acute (3) Atrial fibrillation with RVR Status: Resolved (4) Dyspnea Status: Resolved Discharge Plan - Discharge Data Disposition: Condition at Discharge: - Discharge Medications No Action Multivit-Min/Iron/Folic/Lutein [Centrum Silver Women Tablet] 1 each PO QPM Olopatadine HCl [Pazeo 0.7% Oph Soln] 1 drop BOTH EYES DAILY Losartan Potassium [Losartan Potassium] 50 mg PO QPM Levothyroxine Tab [Synthroid Tab] 112 mcg PO QAM Metformin HCl 500 mg PO QPM Magnesium 250 mg PO QPM Tramadol HCl [Tramadol Tab] 50 mg PO Q6H PRN PRN Reason: Pain Tizanidine HCl [Tizanidine HCl] 4 mg PO BEDTIME Pravastatin Sodium [Pravastatin Sodium] 40 mg PO BEDTIME Ergocalciferol (Vitamin D2) [Vitamin D2] 50,000 unit PO Q7D Cyanocobalamin (Vitamin B-12) [Cyanocobalamin Injection] 1,000 mcg IJ Q30D Carvedilol [Carvedilol] 3.125 mg PO BID Omeprazole 20 mg PO QPM Aspirin EC Tab 81 mg PO QPM Citalopram Hydrobromide [Citalopram HBr] 10 mg PO QPM - Follow Up or Referral - Forms/Instructions Exam - Constitutional Vitals: Period Temp Pulse Resp BP Sys/Infante Pulse Ox Last 24 Hr 96.3 F-98.6 F 46-128 0-23 0-167/0-113 0-100 Discharge Results Procedures and tests throughout hospitalization: Pending Orders 04/16/17 Urine Culture Routine 04/17/17 01:25 MRSA Screen Stat Labs on day of discharge: Labs from last 24 hours 04/17/17 04/17/17 04/17/17 07:40 05:25 03:15 WBC RBC Hgb Hct MCV MCH MCHC RDW Plt Count MPV Neut % (Auto) Lymph % (Auto) [facility] % (Auto) Eos % (Auto) Baso % (Auto) Neut # (Auto) Lymph # (Auto) [facility] # (Auto) Eos # (Auto) Baso # (Auto) Total Counted Immature Gran % Nucleated RBC % Immature Gran # Segmented Neutrophils Band Neutrophils Lymphocytes Monocytes Metamyelocytes Myelocytes Nucleated RBCs # Platelet Estimate Polychromasia [place] Cells INR PT Patient/Control Mix Circ Anticoag PTT ABG pH 6.977 L* D 7.178 L* D ABG pCO2 28.4 L 24.1 L ABG pO2 135.0 H 157.0 H ABG HCO3 7.5 L 10.9 L ABG Total CO2 6.6 L 8.3 L ABG O2 Saturation 95.9 98.3 ABG Base Excess -24.1 L -18.4 L FiO2 100.00 Sodium Potassium Chloride Carbon Dioxide Anion Gap BUN Creatinine GFR Calculation BUN/Creatinine Ratio Glucose POC Glucose Hemoglobin A1c Calculated Osmolality Calcium Magnesium Total Bilirubin AST ALT Alkaline Phosphatase Total Creatine Kinase CK-MB (CK-2) CK and CKMB Interp Troponin I B-Natriuretic Peptide 297 H Total Protein Albumin Globulin Albumin/Globulin Ratio Triglycerides Cholesterol LDL Cholesterol VLDL Cholesterol HDL Cholesterol Heart Disease Risk Ratio Free T4 TSH 3rd Generation Urine Color Urine Appearance Urine pH Ur Specific [place] Urine Protein Urine Glucose (UA) Urine Ketones Urine Blood Urine Nitrate Urine Bilirubin Urine Urobilinogen Urine Leukocytes Urine RBC Urine WBC Urine Bacteria Hyaline Casts Urine Mucus Ur Culture Indicated? Urine Opiates Screen Ur Barbiturates Screen Ur Phencyclidine Scrn U Amphetamine/Methamph U Benzodiazepines Scrn U Cocaine Metab Screen U Cannabinoids Screen 04/17/17 04/17/17 04/17/17 03:15 03:15 03:15 WBC RBC Hgb Hct MCV MCH MCHC RDW Plt Count MPV Neut % (Auto) Lymph % (Auto) [facility] % (Auto) Eos % (Auto) Baso % (Auto) Neut # (Auto) Lymph # (Auto) [facility] # (Auto) Eos # (Auto) Baso # (Auto) Total Counted Immature Gran % Nucleated RBC % Immature Gran # Segmented Neutrophils Band Neutrophils Lymphocytes Monocytes Metamyelocytes Myelocytes Nucleated RBCs # Platelet Estimate Polychromasia [place] Cells INR PT Patient/Control Mix Circ Anticoag PTT ABG pH ABG pCO2 ABG pO2 ABG HCO3 ABG Total CO2 ABG O2 Saturation ABG Base Excess FiO2 Sodium Potassium Chloride Carbon Dioxide Anion Gap BUN Creatinine GFR Calculation BUN/Creatinine Ratio Glucose POC Glucose Hemoglobin A1c 7.2 H Calculated Osmolality Calcium Magnesium Total Bilirubin AST ALT Alkaline Phosphatase Total Creatine Kinase 2317 H CK-MB (CK-2) 100.4 H CK and CKMB Interp 4.3 Troponin I 166.000 H D B-Natriuretic Peptide Total Protein Albumin Globulin Albumin/Globulin Ratio Triglycerides 196 H Cholesterol 166 LDL Cholesterol 105.0 VLDL Cholesterol 39.2 HDL Cholesterol 53 Heart Disease Risk Ratio 3.13 Free T4 TSH 3rd Generation Urine Color Urine Appearance Urine pH Ur Specific [place] Urine Protein Urine Glucose (UA) Urine Ketones Urine Blood Urine Nitrate Urine Bilirubin Urine Urobilinogen Urine Leukocytes Urine RBC Urine WBC Urine Bacteria Hyaline Casts Urine Mucus Ur Culture Indicated? Urine Opiates Screen Ur Barbiturates Screen Ur Phencyclidine Scrn U Amphetamine/Methamph U Benzodiazepines Scrn U Cocaine Metab Screen U Cannabinoids Screen 04/17/17 04/17/17 04/17/17 03:15 03:15 01:25 WBC 20.2 H D RBC 3.86 Hgb 11.2 L Hct 36.1 MCV 93.5 MCH 29 MCHC 31.0 L RDW 14.3 Plt Count 205 MPV 10.7 Neut % (Auto) 84.8 H Lymph % (Auto) 8.8 L [facility] % (Auto) 4.8 Eos % (Auto) 0.0 Baso % (Auto) 0.1 Neut # (Auto) 17.1 H Lymph # (Auto) 1.8 [facility] # (Auto) 1.0 H Eos # (Auto) 0.0 Baso # (Auto) 0.0 Total Counted 100 Immature Gran % 1.5 Nucleated RBC % 0.0 Immature Gran # 0.30 Segmented Neutrophils 73 Band Neutrophils 9 Lymphocytes 9 L Monocytes 3 Metamyelocytes 5 Myelocytes 1 Nucleated RBCs # 0.00 Platelet Estimate Normal Polychromasia Few Brittny Cells 1+ INR PT Patient/Control Mix Circ Anticoag PTT ABG pH ABG pCO2 ABG pO2 ABG HCO3 ABG Total CO2 ABG O2 Saturation ABG Base Excess FiO2 Sodium 146 H Potassium 4.1 Chloride 106 Carbon Dioxide 14 L Anion Gap 30.1 H BUN 34 H Creatinine 2.70 H GFR Calculation 14 BUN/Creatinine Ratio 12.00 Glucose 200 H POC Glucose Hemoglobin A1c Calculated Osmolality 303.6 Calcium 7.4 L Magnesium 1.7 L Total Bilirubin AST ALT Alkaline Phosphatase Total Creatine Kinase CK-MB (CK-2) CK and CKMB Interp Troponin I 93.800 H D B-Natriuretic Peptide Total Protein Albumin Globulin Albumin/Globulin Ratio Triglycerides Cholesterol LDL Cholesterol VLDL Cholesterol HDL Cholesterol Heart Disease Risk Ratio Free T4 TSH 3rd Generation Urine Color Urine Appearance Urine pH Ur Specific [place] Urine Protein Urine Glucose (UA) Urine Ketones Urine Blood Urine Nitrate Urine Bilirubin Urine Urobilinogen Urine Leukocytes Urine RBC Urine WBC Urine Bacteria Hyaline Casts Urine Mucus Ur Culture Indicated? Urine Opiates Screen Ur Barbiturates Screen Ur Phencyclidine Scrn U Amphetamine/Methamph U Benzodiazepines Scrn U Cocaine Metab Screen U Cannabinoids Screen 04/16/17 04/16/17 04/16/17 21:55 19:31 19:25 WBC RBC Hgb Hct MCV MCH MCHC RDW Plt Count MPV Neut % (Auto) Lymph % (Auto) [facility] % (Auto) Eos % (Auto) Baso % (Auto) Neut # (Auto) Lymph # (Auto) [facility] # (Auto) Eos # (Auto) Baso # (Auto) Total Counted Immature Gran % Nucleated RBC % Immature Gran # Segmented Neutrophils Band Neutrophils Lymphocytes Monocytes Metamyelocytes Myelocytes Nucleated RBCs # Platelet Estimate Polychromasia [place] Cells INR PT Patient/Control Mix Circ Anticoag PTT ABG pH 7.112 L* ABG pCO2 37.3 ABG pO2 101.0 H ABG HCO3 11.7 L ABG Total CO2 11.3 L ABG O2 Saturation 94.7 L ABG Base Excess -17.0 L FiO2 Sodium Potassium Chloride Carbon Dioxide Anion Gap BUN Creatinine GFR Calculation BUN/Creatinine Ratio Glucose POC Glucose 266 H Hemoglobin A1c Calculated Osmolality Calcium Magnesium Total Bilirubin AST ALT Alkaline Phosphatase Total Creatine Kinase CK-MB (CK-2) CK and CKMB Interp Troponin I 56.400 H D B-Natriuretic Peptide Total Protein Albumin Globulin Albumin/Globulin Ratio Triglycerides Cholesterol LDL Cholesterol VLDL Cholesterol HDL Cholesterol Heart Disease Risk Ratio Free T4 TSH 3rd Generation Urine Color Urine Appearance Urine pH Ur Specific [place] Urine Protein Urine Glucose (UA) Urine Ketones Urine Blood Urine Nitrate Urine Bilirubin Urine Urobilinogen Urine Leukocytes Urine RBC Urine WBC Urine Bacteria Hyaline Casts Urine Mucus Ur Culture Indicated? Urine Opiates Screen Ur Barbiturates Screen Ur Phencyclidine Scrn U Amphetamine/Methamph U Benzodiazepines Scrn U Cocaine Metab Screen U Cannabinoids Screen 04/16/17 04/16/17 04/16/17 19:15 18:32 17:50 WBC RBC Hgb Hct MCV MCH MCHC RDW Plt Count MPV Neut % (Auto) Lymph % (Auto) [facility] % (Auto) Eos % (Auto) Baso % (Auto) Neut # (Auto) Lymph # (Auto) [facility] # (Auto) Eos # (Auto) Baso # (Auto) Total Counted Immature Gran % Nucleated RBC % Immature Gran # Segmented Neutrophils Band Neutrophils Lymphocytes Monocytes Metamyelocytes Myelocytes Nucleated RBCs # Platelet Estimate Polychromasia [place] Cells INR PT Patient/Control Mix Circ Anticoag PTT ABG pH 7.117 L* ABG pCO2 38.5 ABG pO2 146.0 H ABG HCO3 12.1 L ABG Total CO2 11.7 L ABG O2 Saturation 97.7 ABG Base Excess -16.6 L FiO2 Sodium Potassium Chloride Carbon Dioxide Anion Gap BUN Creatinine GFR Calculation BUN/Creatinine Ratio Glucose POC Glucose Hemoglobin A1c Calculated Osmolality Calcium Magnesium Total Bilirubin AST ALT Alkaline Phosphatase Total Creatine Kinase CK-MB (CK-2) CK and CKMB Interp Troponin I 6.740 H D B-Natriuretic Peptide Total Protein Albumin Globulin Albumin/Globulin Ratio Triglycerides Cholesterol LDL Cholesterol VLDL Cholesterol HDL Cholesterol Heart Disease Risk Ratio Free T4 TSH 3rd Generation Urine Color Sarah Urine Appearance Cloudy Urine pH 5.0 Ur Specific [place] 1.016 Urine Protein 100 Urine Glucose (UA) Negative Urine Ketones 5 Urine Blood Large Urine Nitrate Negative Urine Bilirubin Negative Urine Urobilinogen < 2.0 H Urine Leukocytes Moderate H Urine RBC 371 Urine WBC 102 Urine Bacteria Many Hyaline Casts 110 Urine Mucus Few Ur Culture Indicated? Results to follow Urine Opiates Screen Ur Barbiturates Screen Ur Phencyclidine Scrn U Amphetamine/Methamph U Benzodiazepines Scrn U Cocaine Metab Screen U Cannabinoids Screen 04/16/17 04/16/17 04/16/17 17:50 15:04 15:04 WBC RBC Hgb Hct MCV MCH MCHC RDW Plt Count MPV Neut % (Auto) Lymph % (Auto) [facility] % (Auto) Eos % (Auto) Baso % (Auto) Neut # (Auto) Lymph # (Auto) [facility] # (Auto) Eos # (Auto) Baso # (Auto) Total Counted Immature Gran % Nucleated RBC % Immature Gran # Segmented Neutrophils Band Neutrophils Lymphocytes Monocytes Metamyelocytes Myelocytes Nucleated RBCs # Platelet Estimate Polychromasia [place] Cells INR PT Patient/Control Mix Circ Anticoag PTT ABG pH ABG pCO2 ABG pO2 ABG HCO3 ABG Total CO2 ABG O2 Saturation ABG Base Excess FiO2 Sodium 139 Potassium 4.4 Chloride 102 Carbon Dioxide 23 Anion Gap 18.4 H BUN 27 H Creatinine 1.90 H GFR Calculation 22 BUN/Creatinine Ratio 14.00 Glucose 202 H POC Glucose Hemoglobin A1c Calculated Osmolality 287.5 Calcium 8.6 Magnesium Total Bilirubin 0.70 AST 22 ALT 15 Alkaline Phosphatase 106 Total Creatine Kinase CK-MB (CK-2) CK and CKMB Interp Troponin I 1.200 H B-Natriuretic Peptide 293 H Total Protein 7.1 Albumin 3.2 L Globulin 3.9 H Albumin/Globulin Ratio 0.8 L Triglycerides Cholesterol LDL Cholesterol VLDL Cholesterol HDL Cholesterol Heart Disease Risk Ratio Free T4 TSH 3rd Generation 0.690 Urine Color Urine Appearance Urine pH Ur Specific [place] Urine Protein Urine Glucose (UA) Urine Ketones Urine Blood Urine Nitrate Urine Bilirubin Urine Urobilinogen Urine Leukocytes Urine RBC Urine WBC Urine Bacteria Hyaline Casts Urine Mucus Ur Culture Indicated? Urine Opiates Screen Negative Ur Barbiturates Screen Negative Ur Phencyclidine Scrn Negative U Amphetamine/Methamph Negative U Benzodiazepines Scrn Negative U Cocaine Metab Screen Negative U Cannabinoids Screen Negative 04/16/17 04/16/17 04/16/17 15:04 15:04 15:04 WBC 13.5 H RBC 3.95 Hgb 11.3 L Hct 35.0 L MCV 88.6 MCH 29 MCHC 32.3 RDW 14.0 Plt Count 225 MPV 10.7 Neut % (Auto) 80.9 H Lymph % (Auto) 11.8 L [facility] % (Auto) 5.8 Eos % (Auto) 0.6 Baso % (Auto) 0.4 Neut # (Auto) 11.0 H Lymph # (Auto) 1.6 [facility] # (Auto) 0.8 Eos # (Auto) 0.1 Baso # (Auto) 0.1 Total Counted Immature Gran % 0.5 Nucleated RBC % 0.0 Immature Gran # 0.07 Segmented Neutrophils Band Neutrophils Lymphocytes Monocytes Metamyelocytes Myelocytes Nucleated RBCs # 0.00 Platelet Estimate Polychromasia [place] Cells INR 1.1 PT Patient/Control Mix 11.3 Circ Anticoag PTT 28.8 ABG pH ABG pCO2 ABG pO2 ABG HCO3 ABG Total CO2 ABG O2 Saturation ABG Base Excess FiO2 Sodium Potassium Chloride Carbon Dioxide Anion Gap BUN Creatinine GFR Calculation BUN/Creatinine Ratio Glucose POC Glucose Hemoglobin A1c Calculated Osmolality Calcium Magnesium Total Bilirubin AST ALT Alkaline Phosphatase Total Creatine Kinase CK-MB (CK-2) CK and CKMB Interp Troponin I B-Natriuretic Peptide Total Protein Albumin Globulin Albumin/Globulin Ratio Triglycerides Cholesterol LDL Cholesterol VLDL Cholesterol HDL Cholesterol Heart Disease Risk Ratio Free T4 1.88 H TSH 3rd Generation Urine Color Urine Appearance Urine pH Ur Specific [place] Urine Protein Urine Glucose (UA) Urine Ketones Urine Blood Urine Nitrate Urine Bilirubin Urine Urobilinogen Urine Leukocytes Urine RBC Urine WBC Urine Bacteria Hyaline Casts Urine Mucus Ur Culture Indicated? Urine Opiates Screen Ur Barbiturates Screen Ur Phencyclidine Scrn U Amphetamine/Methamph U Benzodiazepines Scrn U Cocaine Metab Screen U Cannabinoids Screen Preliminary micro results at discharge 04/16/17 Unknown Urine Culture - Preliminary Urine,Voided Gram Negative Rods DS: Provider Date of admission: 04/16/17 17:20 Primary care physician: . No PCP Attending physician on admission: Adrien Garcia MD Consults: 04/16/17 18:49 Consult to Physician [CONS] Routine Comment: chest pain Consulting Provider: Robin Mccarthy 04/17/17 03:54 Consult to Physician [CONS] Routine Comment: Consulting Provider: Consult to Specialist Group: Pulmonology When should Consulting Provider be notified: Now 04/17/17 04:01 Consult to Physician [CONS] Stat Comment: pneumothorax, needs chest tube Consulting Provider: Kee Patel 04/17/17 06:08 Consult to Physician [CONS] Routine Comment: renal failure Consulting Provider: Josh Feng Jr. When should Consulting Provider be notified: In am Discharging clinician: Adrien Garcia MD
[2017-04-17] MEDS ORDERED: EPINEPHrine 1 MG/ML VIAL ONE (10:18)
[2017-04-17] MEDS ORDERED: DOPamine 800 MG/250 ML PREMIX IV ONE (10:18)
[2017-04-17] MEDS ORDERED: ATROPINE 1 MG/10 ML SYRINGE ONE (10:18)
--- NOTE | 2017-04-18 04:52 | EKG Report ---
Stationary ECG Study [facility] ER Test Date: 04/16/2017 5:52:26 PM Pat Name: NABEEL BONILLA Department: Room: 117 Gender: F Physical Therapy Supervisor: : [id number] Requested by: Osmin Swanson Order Number: [id number] Reading MD: ROLANDO ABRAMS Intervals [place] Rate: 72 P: 78 AL: 158 QRS: 34 QRSD: 144 T: 142 QT: 398 QTc: 422 Interpretive Statements SINUS RHYTHM WITH SINUS ARRHYTHMIA LEFT BUNDLE BRANCH BLOCK INTERPRETATION BASED ON A DEFAULT AGE OF 40 YEARS Electronically Signed On 04-18-17 06:14:13 CDT by ROLANDO ABRAMS [email or web address]
== END 2017-04-17 09:11 | disposition expired | DRG 208 ==
LOC: N.ED 14:45 → N.EDINP 17:20 → N.ICU 17:54
PROVIDERS: ADMIT Internal Medicine; ATTEND Internal Medicine